=== PATIENT | female | born 1945 | race African-American/Black ===

== ENCOUNTER 2019-05-27 06:32 | Day surgery (SDC) | payer MEDICARE, MEDICAID ==
--- NOTE | 2019-05-21 11:06 | Pre-Procedure Note/Attestation ---
Pre-Procedure Note/Attestation Complete Prior to Procedure Planned Procedure: right Procedure Narrative: Cataract extraction with intraocular lens implant right eye Indications for Procedure Pre-Operative Diagnosis: Nuclear sclerotic Cataract right eye Attestation I attest that I discussed the nature of the procedure; its benefits; risks and complications; and alternatives (and the risks and benefits of such alternatives ), prior to the procedure, with the patient (or the patient's legal associate sales representative). I attest that, if there was a reasonable possibility of needing a blood transfusion, the patient (or the patient's legal associate sales representative) was given the [facility] standardized written summary, pursuant to the [place] To Blood Safety Act ([place] Health and Safety Code # 1645, as amended). I attest that I re-evaluated the patient just prior to the surgery and that there has been no change in the patient's H&P, except as documented below: Carlos Brown MD May 21, 2019 11:06
[~2019-05-27] VITALS: Ht 175.3 cm; Wt 108.9 kg
[2019-05-27] VITALS (10 sets, daily range): BP systolic 125–151; BP diastolic 52–76
[2019-05-27] MEDS: Phenylephrine 10% Opth Soln 5ml RIGHT EYE SCH ×3 (06:56→07:14)
[2019-05-27] MEDS: Cyclopentolate 1% Opth Sol 2ml RIGHT EYE SCH ×3 (06:56→07:14)
[2019-05-27] MEDS: Tropicamide 1% Opth 15ml Soln RIGHT EYE SCH ×3 (06:56→07:14)
[2019-05-27] MEDS ORDERED: Akten 3.5% 1ml Btl RIGHT EYE ONE (07:00)
[2019-05-27] MEDS ORDERED: Tetracaine 0.5% Opth 4ml Soln RIGHT EYE ONE (07:00)
[2019-05-27] MEDS ORDERED: Diclofenac Sod 0.1% Op Soln RIGHT EYE SCH (07:00)
[2019-05-27] MEDS ORDERED: Proparacaine 0.5% Opth Soln 15ml RIGHT EYE ONE (07:00)
[2019-05-27] MEDS ORDERED: NAPROXEN250 M1 PO (07:09)
[2019-05-27] MEDS ORDERED: ATENOLOL25 MG ORAL (07:09)
[2019-05-27] MEDS ORDERED: CALCIUM CITRAT1 EA15 PO (07:09)
[2019-05-27] MEDS ORDERED: ALLOPURINOL100 M1 ORAL (07:09)
[2019-05-27] MEDS ORDERED: VITAMIN B122500 MCG PO (07:09)
[2019-05-27] MEDS ORDERED: VITAMIN D400 INTLU ORAL (07:09)
[2019-05-27] MEDS ORDERED: HYDROCHLOROTHIA25 MG ORAL (07:09)
[2019-05-27] MEDS ORDERED: Carbachol 0.01% Op Soln 1.5ml vial ONE (07:24)
[2019-05-27] MEDS ORDERED: acetaZOLAMIDE 500mg Inj ONE (07:24)
[2019-05-27] MEDS ORDERED: EPINEPHrine 1mg/1ml Amp ONE (07:24)
[2019-05-27] MEDS ORDERED: Lidocaine 4% Amp ONE (07:24)
[2019-05-27] MEDS ORDERED: Sodium Hyaluronate 14 mg/ml 0.85ml ONE (07:25)
[2019-05-27] MEDS ORDERED: BSS 15ml BTL ONE (07:25)
[2019-05-27] MEDS ORDERED: Povidone-Iodine 5% opth solution ONE (07:25)
[2019-05-27] MEDS ORDERED: Tetracaine 0.5% Opth 4ml Soln ONE (07:25)
[2019-05-27] MEDS ORDERED: BSS 500ml btl ONE (07:25)
[2019-05-27] MEDS ORDERED: Pilocarpine 1% Opth 15ml Soln ONE (07:30)
[2019-05-27] MEDS ORDERED: Sterile Water Irrig 1000ml IRRIG ONE (07:30)
[2019-05-27] MEDS ORDERED: Pred Forte 1% Opth Susp 1ml ONE (07:30)
[2019-05-27] MEDS ORDERED: NS Irrig 1000ml ONE (07:30)
[2019-05-27] MEDS ORDERED: Midazolam 2mg/2ml Inj ONE ×2 (07:38→08:17)
[2019-05-27] MEDS ORDERED: fentaNYL 100 mcg/2 mL IV ONE (07:38)
--- NOTE | 2019-05-27 07:57 | Anethesia Preoperative Eval ---
Anesthesia Pre-op PMH/ROS General Date of Evaluation: May 27, 2019 Time of Evaluation: 07:54 Anesthesiologist: kirby ASA Score: ASA 2 Mallampati Score Class I : Soft palate, uvula, fauces, pillars visible Class II: Soft palate, uvula, fauces visible Class III: Soft palate, base of uvula visible Class IV: Only hard plate visible Mallampati Classification: Class II Surgeon: lola Diagnosis: cataract Surgical Procedure: cataract extraction Anesthesia History: difficult airway Family History: no anesthesia problems Allergies: Coded Allergies: CODEINE (Verified Allergy, Mild, ITCHING, 05/27/19) Medications: see eMAR Patient NPO?: Yes NPO Date: May 27, 2019 NPO Time: 00:01 Past Medical History Cardiovascular: Reports: HTN; Denies: CAD, MA, valve dz, arrhythmia, other Pulmonary: Denies: asthma, COPD, DIMPLE, other Gastrointestinal/Genitourinary: Denies: GERD, CRI, ESRD, other Neurologic/Psychiatric: Denies: dementia, CVA, depression/anxiety, TIA, other Endocrine: Denies: DM, hypothyroidism, steroids, other HEENT: Denies: cataract (L), cataract (R), glaucoma, AKIAK (L), AKIAK (R), other Hematology/Immune: Denies: anemia, DVT, bleeding disorder, other Musculoskeletal/Integumentary: Denies: OA, RA, DJD, DDD, edema, other Other: obesity PSxH Narrative: lap chol Anesthesia Pre-op Phys. Exam Physician Exam Last Vital Signs Date Time Temp Pulse Resp B/P (MAP) Pulse Ox O2 Delivery O2 Flow Rate FiO2 05/27/19 07:10 Room Air 05/27/19 07:02 97.1 51 18 138/75 95 Constitutional: NAD Neurologic: CN 2-12 intact Cardiovascular: RRR Respiratory: CTA Gastrointestinal: S/NT/ND Airway Exam Mallampati Classification 3 Mallampati Score: Class III MO: full Neck: thick ROM: full Dentures: no upper, no lower Anesthesia Pre-op A/P Risk Assessment & Plan Plan: mac Status Change Before Surgery: No Pre-Antibiotics Drug: none Chante Toussaint CRNA May 27, 2019 07:57
[2019-05-27] MEDS ORDERED: fentaNYL 100 mcg/2 mL IV PRN (08:00)
--- NOTE | 2019-05-27 08:45 | Immediate Post-Op Evaluation ---
Immediate Post-Op Evalulation Immediate Post-Op Evalulation Procedure: cataract extraction right eye Date of Evaluation: May 27, 2019 Time of Evaluation: 08:30 IV Fluids: 300 Blood Pressure Systolic: 100 Blood Pressure Diastolic: 50 Pulse Rate: 53 Respiratory Rate: 14 O2 Sat by Pulse Oximetry: 99 Temperature (Fahrenheit): 97.7 Nausea: No Vomiting: No Complications none Patient Status: awake, reacts, patent Hydration Status: adequate Drug: none Chante Toussaint CRNA May 27, 2019 08:45
[2019-05-27] MEDS ORDERED: Tobramycin Op Soln 0.3% 5ml RIGHT EYE SCH (09:30)
--- NOTE | 2019-05-27 15:34 | 48 Hour Post Anesthesia Eval ---
Post Anesthesia Evaluation Procedure: cataract extraction right eye Date of Evaluation: May 27, 2019 Time of Evaluation: 15:34 Blood Pressure Systolic: 143 0: 76 Pulse Rate: 54 Respiratory Rate: 14 O2 Sat by Pulse Oximetry: 98 Airway: patent Nausea: No Vomiting: No Hydration Status: adequate Cardiopulmonary Status: stable Mental Status/LOC: patient returned to baseline Post-Anesthesia Complications: none Follow-up care needed: N/A Chante Toussaint CRNA May 27, 2019 15:34
--- NOTE | 2019-05-29 13:58 | Brief Operative Note ---
Immediate Post Operative Note Operative Note Chief Complaint: Blurry vision Pre-op Diagnosis: Nuclear sclerotic Cataract right eye Findings: consistent w/pre-op dx studies Surgeon: Carlos Brown MD Anesthesiologist: Chante Toussaint CRNA Anesthesia: MAC Specimen: none Complications: yes Condition: stable Fluids: LR Estimated Blood Loss: none Drains: none Implant(s) used?: Yes - IOL Carlos Brown MD May 29, 2019 13:58
--- NOTE | 2019-05-29 14:02 | Operative Note - PDOC ---
Operative Note Operative Note Date of Operation/Procedure: May 27, 2019 Chief Complaint: Blurry vision Pre-op Diagnosis: Nuclear sclerotic Cataract right eye Procedure: Cataract extraction with IOL implant right eye Post-op Diagnosis: Pseudo right eye Operative Findings: consistent w/pre-op dx studies Surgeon: Carlos Brown MD Anesthesiologist: Chante Toussaint CRNA Anesthesia: MAC Specimen: none Complications: yes Condition: stable Fluids: LR Estimated Blood Loss: none Drains: none Implant(s) used?: Yes - IOL Indications for Procedure Nuclear Sclerotic Cataract right eye Description of Procedure This patient has been complaining visually significant cataract in the right eye with the best corrected visual acuity of 20/80 under moderate glare conditions worse. The patient complains of difficulties with glare in performing activities of daily living and wants to manage personal affairs with comfort and accuracy and see well enough to move with safety at home and outdoors. The risks, benefits and alternatives of the procedure were discussed with the patient in the office prior to scheduling surgery. All questions from the patient were answered after the surgical procedure was explained in detail. The risks of the procedure as explained to the patient include, but are not limited to, pain, infection, bleeding, loss of vision, retinal detachment, need for further surgery, loss of lens nucleus, double vision, etc. Alternative procedures were discussed which include, to do nothing or seek a second opinion. Informed consent for this procedure was obtained from the patient. The patient was referred to a primary care physician for a cardiopulmonary clearance prior to surgery, after proper evaluation was done patient was properly scheduled for outpatient surgery. The patient was brought to the operating room where the anesthesiologist established I.V. lines and cardiac monitoring leads. Mild intravenous sedation was administered. The patient was then prepared with a 5% solution of povidone -iodine to the conjunctival fornix and lashes, and a 5% solution of povidone- iodine to the lids and periorbital skin. The patient was then draped in the usual sterile fashion. A lid speculum was then placed in the operative eye. A keratome blade was then used to create a biplanar incision into the anterior chamber. Viscoelastics was then instilled into the anterior chamber. A 3-mm single pass clear corneal incision was made just anterior to the vascular arcade of the temporal limbus using a keratome. Anterior capsulorrhexis was created. The nucleus was hydrodissected and hydrodelineated, and was freely movable in the capsular bag. The nucleus was then phacoemulsified using a quadrantic [id number] technique. Following the deep groove formation, the lens was split bimanually and the resultant quadrants and cortical material was removed under vacuum burst -mode phacoemulsification. Peripheral cortex was removed with the irrigation and aspiration handpiece. The capsular bag was expanded with viscoelastic. The intraocular lens was then inspected for right power and size and thought to be satisfactory. The implant was inspected under the microscope and found to be free of defects. The implant was inserted into the cartridge system under viscoelastic and placed in the capsular bag. The trailing haptic was positioned with the cartridge system. Viscoelastics was removed from the anterior chamber using the irrigation and aspiration unit. The corneal wound was then tested for leaks and none were found. The lid speculum were then removed. Sponge and needle counts were correct. An eye patch and shield were placed over the operative eye. The patient was taken to the recovery room in stable condition. There were no complications. The patient tolerated the procedure well. The patient was then transferred to the ambulatory surgery unit in stable and satisfactory condition , was given detailed written instructions and asked to follow up in the office the next day. Carlos Brown MD May 29, 2019 14:01
== END 2019-05-27 09:50 | disposition home or self-care (01) ==
LOC: SUR 06:32
DX: H25.11 Age-related nuclear cataract, right eye (principal); I10 Essential (primary) hypertension; Z88.6 Allergy status to analgesic agent; E66.9 Obesity, unspecified; Z90.49 Acquired absence of other specified parts of digestive tract; E78.5 Hyperlipidemia, unspecified; E07.9 Disorder of thyroid, unspecified
CPT/HCPCS: 66984; J0171; J2250; J3010; J3370; V2632; 94003; 94150

== ENCOUNTER 2019-10-14 06:15 | Day surgery (SDC) | payer MEDICARE, MEDICAID ==
--- NOTE | 2019-10-10 17:32 | Opthalmology H&P ---
Ophthalmology H&P H&P Chief Complaint: decreased vision in left eye HPI Vision Affects Ability to: read, manage personal affairs HPI Narrative Blurry vision Exam Visual Acuity: OD 20/30 OS 20/125 Tension: OD 15 OS 14 Eye Exam: normal OU: external exam, palpebral fissure-width, marginal reflex distance, levator function, corneas, anterior chambers, lens - NS Cataract OS, fundus exam; findings: lens - NS Cataract OS Assessment/Plan Treatment Plan: cataract extraction w/ lens implant Goals of Treatment: improvement of vision, enhance quality of life Attestation Attestation The risks and benefits of the surgery as well as alternative procedures were explained to the patient in detail. Carlos Brown MD Oct 10, 2019 17:32
--- NOTE | 2019-10-10 17:33 | Pre-Procedure Note/Attestation ---
Pre-Procedure Note/Attestation Complete Prior to Procedure Planned Procedure: left Procedure Narrative: Cataract extraction with IOL implant left eye Indications for Procedure Pre-Operative Diagnosis: Nuclear sclerotic cataract left eye Attestation I attest that I discussed the nature of the procedure; its benefits; risks and complications; and alternatives (and the risks and benefits of such alternatives ), prior to the procedure, with the patient (or the patient's legal sales representative jewelry). I attest that, if there was a reasonable possibility of needing a blood transfusion, the patient (or the patient's legal sales representative jewelry) was given the [facility] standardized written summary, pursuant to the [place] To Blood Safety Act ([place] Health and Safety Code # 1645, as amended). I attest that I re-evaluated the patient just prior to the surgery and that there has been no change in the patient's H&P, except as documented below: Carlos Brown MD Oct 10, 2019 17:33
[2019-10-14] VITALS (8 sets, daily range): BP systolic 125–147; BP diastolic 54–70
[~2019-10-14] VITALS: Ht 175.3 cm; Wt 106.1 kg
[~2019-10-14 06:15] MED LIST: ALLOPURINOL100 M1 ORAL; ATENOLOL25 MG ORAL; CALCIUM CITRAT1 EA15 PO; HYDROCHLOROTHIA25 MG ORAL; NAPROXEN250 M1 PO; VITAMIN B122500 MCG PO; VITAMIN D400 INTLU ORAL
[2019-10-14] MEDS ORDERED: Akten 3.5% 1ml Btl LEFT EYE ONE (07:00)
[2019-10-14] MEDS ORDERED: Tetracaine 0.5% Opth 4ml Soln LEFT EYE ONE (07:00)
[2019-10-14] MEDS ORDERED: Proparacaine 0.5% Opth Soln 15ml LEFT EYE ONE (07:00)
[2019-10-14] MEDS: Tobramycin Op Soln 0.3% 5ml LEFT EYE SCH ×3 (08:42→09:03)
[2019-10-14] MEDS: Cyclopentolate 1% Opth Sol 2ml LEFT EYE SCH ×3 (08:42→09:03)
[2019-10-14] MEDS: Phenylephrine 10% Opth Soln 5ml LEFT EYE SCH ×3 (08:42→09:03)
[2019-10-14] MEDS: Diclofenac Sod 0.1% Op Soln LEFT EYE SCH ×3 (08:42→09:03)
[2019-10-14] MEDS: Tropicamide 1% Opth 15ml Soln LEFT EYE SCH ×3 (08:42→09:03)
--- NOTE | 2019-10-14 09:29 | Anethesia Preoperative Eval ---
Anesthesia Pre-op PMH/ROS General Date of Evaluation: Oct 14, 2019 Anesthesiologist: Ottoniel ASA Score: ASA 2 Mallampati Score Class I : Soft palate, uvula, fauces, pillars visible Class II: Soft palate, uvula, fauces visible Class III: Soft palate, base of uvula visible Class IV: Only hard plate visible Mallampati Classification: Class II Surgeon: Stephanie Diagnosis: Left cataract Surgical Procedure: Left cataract extraction with IOL Anesthesia History: none Family History: no anesthesia problems Allergies: Coded Allergies: CODEINE (Verified Allergy, Mild, ITCHING, 10/14/19) Medications: see eMAR Patient NPO?: Yes NPO Date: Oct 14, 2019 NPO Time: 00:00 Past Medical History Cardiovascular: Reports: HTN, other - HLD; Denies: CAD, CT, valve dz, arrhythmia Pulmonary: Denies: asthma, COPD, DIMPLE, other Gastrointestinal/Genitourinary: Reports: GERD; Denies: CRI, ESRD, other Neurologic/Psychiatric: Denies: dementia, CVA, depression/anxiety, TIA, other Endocrine: Denies: DM, hypothyroidism, steroids, other HEENT: Denies: cataract (L), cataract (R), glaucoma, WAINWRIGHT (L), WAINWRIGHT (R), other Hematology/Immune: Denies: anemia, DVT, bleeding disorder, other Musculoskeletal/Integumentary: Reports: OA; Denies: RA, DJD, DDD, edema, other Other: obesity PSxH Narrative: Right cataract, lap abraham, bilateral knee arthroscopies Anesthesia Pre-op Phys. Exam Physician Exam Last Vital Signs Date Time Temp Pulse Resp B/P (MAP) Pulse Ox O2 Delivery O2 Flow Rate FiO2 10/14/19 08:49 Room Air 10/14/19 08:47 97.0 55 18 129/63 99 Constitutional: NAD Cardiovascular: RRR Respiratory: CTA Airway Exam Mallampati Score: Class II MO: full ROM: full Teeth: intact Anesthesia Pre-op A/P Labs see chart Studies Pre-op Studies: EKG - sr Risk Assessment & Plan Assessment: ASA II Plan: MAC Status Change Before Surgery: No Pre-Antibiotics Drug: N/A Neda Rivera MD Oct 14, 2019 09:29
[2019-10-14] MEDS ORDERED: LR 1000ml 1,000 ML IVLG SCH (09:30)
[2019-10-14] MEDS ORDERED: DiphenhydrAMINE 50mg/ml Inj IVP PRN (09:30)
[2019-10-14] MEDS ORDERED: acetaZOLAMIDE 500mg Inj ONE (10:27)
[2019-10-14] MEDS ORDERED: EPINEPHrine 1mg/1ml Amp ONE ×2 (10:27→12:04)
[2019-10-14] MEDS ORDERED: BSS 500ml btl ONE (10:28)
[2019-10-14] MEDS ORDERED: BSS 15ml BTL ONE ×2 (10:28→12:04)
[2019-10-14] MEDS ORDERED: Sodium Hyaluronate 10 mg/ml 0.85ml ONE (10:28)
[2019-10-14] MEDS ORDERED: Povidone-Iodine 5% opth solution ONE (10:29)
[2019-10-14] MEDS ORDERED: Midazolam 2mg/2ml Inj ONE (10:55)
[2019-10-14] MEDS ORDERED: Lidocaine 1% MPF 10mg/ml 5ml ONE (10:55)
[2019-10-14] MEDS ORDERED: LR 1000ml ONE (11:00)
[2019-10-14] MEDS ORDERED: Dexamethasone 4mg/ml vial ONE (11:00)
[2019-10-14] MEDS ORDERED: Polysporin Oint 15gm TOPIC ONE (11:00)
[2019-10-14] MEDS ORDERED: Sterile Water Irrig 1000ml IRRIG ONE (11:00)
[2019-10-14] MEDS ORDERED: prednisoLONE acetate 1% Opth Susp 1ml ONE (11:00)
[2019-10-14] MEDS ORDERED: Pilocarpine 1% Opth 15ml Soln ONE (11:00)
[2019-10-14] MEDS ORDERED: NS Irrig 1000ml ONE (11:00)
[2019-10-14] MEDS ORDERED: Lidocaine 4% Amp 5ml ONE (12:04)
--- NOTE | 2019-10-14 12:07 | Immediate Post-Op Evaluation ---
Immediate Post-Op Evalulation Immediate Post-Op Evalulation Date of Evaluation: Oct 14, 2019 Pain Score (1-10): 0 Nausea: No Vomiting: No Complications 0 Patient Status: awake, reacts, patent, none Hydration Status: adequate Drug: N/A Neda Rivera MD Oct 14, 2019 12:07
--- NOTE | 2019-10-14 12:08 | 48 Hour Post Anesthesia Eval ---
Post Anesthesia Evaluation Procedure: Left cataract extractio with IOL Date of Evaluation: Oct 14, 2019 Airway: patent Nausea: No Vomiting: No Pain Intensity: 0 Hydration Status: adequate Cardiopulmonary Status: aat baseline Mental Status/LOC: patient returned to baseline Post-Anesthesia Complications: 0 Follow-up care needed: ready to discharge Neda Rivera MD Oct 14, 2019 12:08
--- NOTE | 2019-10-15 15:58 | Brief Operative Note ---
Immediate Post Operative Note Operative Note Chief Complaint: Blurry vision Pre-op Diagnosis: Nuclear sclerotic cataract left eye Procedure: Cataract extraction with IOL implant left eye Post-op Diagnosis: Pseudo OS Findings: consistent w/pre-op dx studies Surgeon: Carlos Brown MD Anesthesiologist: Neda Kee MD Anesthesia: MAC Specimen: none Complications: none Condition: stable Fluids: LR Estimated Blood Loss: none Drains: none Implant(s) used?: Yes - IOL-OS Carlos Brown MD Oct 15, 2019 15:58
--- NOTE | 2019-10-15 16:00 | Operative Note - PDOC ---
Operative Note Operative Note Date of Operation/Procedure: Oct 14, 2019 Chief Complaint: Blurry vision Pre-op Diagnosis: Nuclear sclerotic cataract left eye Procedure: Cataract extraction with IOL implant left eye Post-op Diagnosis: Pseudo OS Operative Findings: consistent w/pre-op dx studies Surgeon: Carlos Brown MD Anesthesiologist: Neda Kee MD Anesthesia: MAC Specimen: none Complications: none Condition: stable Fluids: LR Estimated Blood Loss: none Drains: none Implant(s) used?: Yes - IOL-OS Indications for Procedure Nuclear sclerotic cataract left eye Description of Procedure This patient has been complaining visually significant cataract in the left eye with the best corrected visual acuity of 20/125 under moderate glare conditions worse. The patient complains of difficulties with glare in performing activities of daily living and wants to manage personal affairs with comfort and accuracy and see well enough to move with safety at home and outdoors. The risks, benefits and alternatives of the procedure were discussed with the patient in the office prior to scheduling surgery. All questions from the patient were answered after the surgical procedure was explained in detail. The risks of the procedure as explained to the patient include, but are not limited to, pain, infection, bleeding, loss of vision, retinal detachment, need for further surgery, loss of lens nucleus, double vision, etc. Alternative procedures were discussed which include, to do nothing or seek a second opinion. Informed consent for this procedure was obtained from the patient. The patient was referred to a primary care physician for a cardiopulmonary clearance prior to surgery, after proper evaluation was done patient was properly scheduled for outpatient surgery. The patient was brought to the operating room where the anesthesiologist established I.V. lines and cardiac monitoring leads. Mild intravenous sedation was administered. The patient was then prepared with a 5% solution of povidone -iodine to the conjunctival fornix and lashes, and a 5% solution of povidone- iodine to the lids and periorbital skin. The patient was then draped in the usual sterile fashion. A lid speculum was then placed in the operative eye. A keratome blade was then used to create a biplanar incision into the anterior chamber. Viscoelastics was then instilled into the anterior chamber. A capsulorrhexis was then fashioned with an utrata forceps A G 27 cannula was used to hydrodissect and hydro delineate the lens nucleus. Paracentesis incision was made at 3 o'clock with sharp blade. The phacoemulsification unit, after being properly adjusted and tested, was then used to emulsify the nucleus. Residual cortical material was aspirated with the irrigation and aspiration unit. Healon was then instilled into the anterior chamber. The corneal wound was then enlarged to the size of the optic with the alejandrina keratome blade. The intraocular lens was then inspected for right power and size and thought to be satisfactory. Then the lens was gently placed in the capsular bag. Positioning within the capsular bag was confirmed by direct visualization. Optic centration was accomplished with a Sinskey hook. Viscoelastics was removed from the anterior chamber using the irrigation and aspiration unit. The corneal wound was then tested for leaks and none were found. The lid speculum were then removed. Sponge and needle counts were correct. An eye patch and shield were placed over the operative eye. The patient was taken to the recovery room in stable condition. There were no complications. The patient tolerated the procedure well. The patient was then transferred to the ambulatory surgery unit in stable and satisfactory condition , was given detailed written instructions and asked to follow up in the office the next day. Carlos Brown MD Oct 15, 2019 16:00
== END 2019-10-14 12:45 | disposition home or self-care (01) ==
LOC: SUR 06:15
DX: H25.12 Age-related nuclear cataract, left eye (principal); I10 Essential (primary) hypertension; E78.5 Hyperlipidemia, unspecified; K21.9 Gastro-esophageal reflux disease without esophagitis; Z90.49 Acquired absence of other specified parts of digestive tract; E66.9 Obesity, unspecified; Z88.6 Allergy status to analgesic agent; Z68.34 Body mass index [BMI] 34.0-34.9, adult
CPT/HCPCS: 66984; J0171; J1100; J2250; J3370; J7120; V2632; 94003; 94150